=== PATIENT | male | born 1980 | race Caucasian/White ===

== ENCOUNTER 2017-03-04 09:51 | Emergency (ER) | payer BC ==
[2017-03-04 11:16] VITALS: BP 143/88
[2017-03-04] MEDS ORDERED: DOXYcycline CAP(*) 100 MG PO ONE (11:26)
--- NOTE | 2017-03-04 11:28 | ED ---
Skin Complaint - HPI Summary HPI Summary: 36 male presents with complaints of a tick bite that he noticed yesterday . 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 Patient attempted to remove tick on his own, however it did break off and there was still a piece of the tick under his skin. He wants it to be removed and for the bite to be checked. He has been bit by a tick before. Denies any history of lyme disease. Denies any bulls eye rash or tick bites elsewhere. Denies fever/chills, arthralgia, headache, numbess/tingling and chest pain. Denies PMHx. - History of Current Complaint Chief Complaint: EDGeneral Time Seen by Provider: 03/04/17 10:05 Stated Complaint: TICK ON CHEST Hx Obtained From: Patient Onset/Duration: Started Days Ago - yesterday Skin Exposure Onset/Duration: Days Ago - yesterday 03/03/17 Onset Severity: Mild Current Severity: Mild Pain Scale Used: 0-10 Numeric Skin Location: Other: - trunk, upper left by clavical Character: Pruritus, Pain, Redness, Raised Aggravating Symptom(s): Touch Alleviating Symptom(s): Other: - removal of tick Associated Signs & Symptoms: Negative Related History: Insect Bite/Sting - tick bite - Allergy/Home Medications Allergies/Adverse Reactions: Allergies Allergy/AdvReac Type Severity Reaction Status Date / Time Cefaclor [From [facility]] Allergy Hives Verified 03/04/17 09:59 PMH/Surg Hx/FS Hx/Imm Hx Endocrine/Hematology History: Denies: Hx Diabetes Respiratory History: Denies: Hx Asthma, Hx Chronic Obstructive Pulmonary Disease (COPD) Infectious Disease History: No Infectious Disease History: Denies: Traveled Outside the [place] in Last 30 Days - Social History Alcohol Use: Rare Substance Use Type: Reports: None Smoking Status (MU): Former Smoker Review of Systems Constitutional: Negative Eyes: Negative ENT: Negative Cardiovascular: Negative Respiratory: Negative Gastrointestinal: Negative Genitourinary: Negative Musculoskeletal: Negative Positive: Other - tick bite upper left trunk, just below clavicle. red, raised and pruritic Neurological: Negative Psychological: Normal All Other Systems Reviewed And Are Negative: Yes Physical Exam Triage Information Reviewed: Yes Vital Signs On Initial Exam: Initial Vitals Temp Pulse Resp BP Pulse Ox 97.8 F 83 20 158/80 100 03/04/17 09:56 03/04/17 09:56 03/04/17 09:56 03/04/17 09:56 03/04/17 09:56 elevated BP noted, patient advised to follow up with primary care doctor to have it re-checked. Vital Signs Reviewed: Yes Appearance: Positive: Well-Appearing, No Pain Distress, Well-Nourished Skin: Positive: Warm, Skin Color Reflects Adequate Perfusion, Dry, Erythema @ - left upper trunk, just under left clavicle. minmally raised, erythematous without discharge. part of tick (tick head) still under skin, visualized. It was removed without complication. Area irrigated. No sign of erythema migrans or tick bites elsewhere. no sign of a cellulitis or red streaks.. Negative: Diaphoretic, Target Lesions, Weeping Skin/Lesions Head/Face: Positive: Normal Head/Face Inspection Eyes: Positive: Normal, Conjunctiva Clear ENT: Positive: Normal ENT inspection, Hearing grossly normal Neck: Positive: Supple, Nontender, No Lymphadenopathy Respiratory/Lung Sounds: Positive: Clear to Auscultation, Breath Sounds Present Cardiovascular: Positive: Normal, RRR, Pulses are Symmetrical in both Upper and Lower Extremities Abdomen Description: Positive: Nontender Bowel Sounds: Positive: Present Musculoskeletal: Positive: Normal, Strength/ROM Intact Neurological: Positive: Normal, Sensory/Motor Intact, Alert, Oriented to Person Place, Time Psychiatric: Positive: Normal, Affect/Mood Appropriate AVPU Assessment: Alert - Lilia Coma Scale Best Eye Response: 4 - Spontaneous Best Motor Response: 6 - Obeys Commands Best Verbal Response: 5 - Oriented Coma Scale Total: 15 Diagnostics - Vital Signs Vital Signs Temp Pulse Resp BP Pulse Ox 03/04/17 11:16 98.6 F 77 16 143/88 100 03/04/17 09:56 97.8 F 83 20 158/80 100 - Laboratory Lab Statement: Any lab studies that have been ordered have been reviewed, and results considered in the medical decision making process. Course/Dx - Course Course Of Treatment: remainder of tick was removed without complication. area was irrigated. patient would like doxycycline prophylaxis although tick was most likely attached <72 hours. Given dose of doxycycline in ED. educated on proper removal of tick and to check his entire body every night. Also to have his dog checked. Importance of wearing bug spray or hiring pest control. Is familiar and aware of worsening signs and symptoms of lyme disease adn given instructions. Topical anti-itch cream or triple antibiotic at the bite wound if desired. Recommend follow up with pcp to check BP. - Differential Diagnoses - Skin Complaint Differential Diagnoses: Cellulitis, Tinea, Urticaria, Other - erythema migrasn, tick byte - Diagnoses Provider Diagnoses: Tick bite Discharge - Discharge Plan Condition: Stable Disposition: HOME Patient Education Materials: Tick Bite (ED), Lyme Disease (ED) Referrals: No Primary Care Phys,[facility]OPCP [Primary Care Provider] - [facility] [place]Outside] Additional Instructions: Watch for worsening signs and symptoms and the "bulls eye" rash. If you develop these please seek medical attention promptly. Avoid going outside without bug spray with Deet. Also consider using on pets. Recommend pest control. Recommend check skin entirely during showering, daily. Follow up with primary care provider.
== END 2017-03-04 11:44 | disposition home or self-care (01) ==
LOC: ED 09:51
DX: S30.861A Insect bite (nonvenomous) of abdominal wall, initial encounter (principal); W57.XXXA Bitten or stung by nonvenomous insect and other nonvenomous arthropods, initial encounter; Y93.9 Activity, unspecified; Y92.89 Other specified places as the place of occurrence of the external cause; Z87.891 Personal history of nicotine dependence
CPT/HCPCS: 99283; A9270-GY